=== PATIENT | male | born 1990 | race Caucasian/White ===

== ENCOUNTER 2020-07-21 07:34 | Emergency (ER) | payer OTHER, SELFPAY ==
[2020-07-21 07:42] VITALS: BP 132/96; PULSE 70; RESP 17; TEMP 36.1; O2SAT 95
--- NOTE | 2020-07-21 08:00 | PC.NURSE ---
PT DOES NOT HAVE A RIDE HOME, DOES NOT WANT TO TAKE THE FLEXERIL.
[2020-07-21] MEDS: IBUPROFEN 600 MG TABLET PO (08:01)
--- NOTE | 2020-07-21 08:02 | ED.BACK ---
HPI - Back Pain/Injury General Chief Complaint: Back Pain/Injury Stated Complaint: back pain Time Seen by Provider: 07/21/20 07:38 History of Present Illness HPI Narrative: Pain in the bilateral flanks for a 2 weeks. Worse with twisting and lifting things. He was concerned that it might be his kidneys so he tired drinking more water. No dysuria, hematuria, fever, trauma. Related Data Allergies Allergy/AdvReac Type Severity Reaction Status Date / Time No Known Allergies Allergy Verified 07/21/20 07:35 Review of Systems Review of Systems: All systems reviewed & are unremarkable except as noted in HPI and below Constitutional: Constitutional: Denies chills and Denies fever(s) Cardiovascular: Cardiovascular: Denies chest pain Respiratory: Respiratory: Denies cough and Denies dyspnea Gastrointestinal: Gastrointestinal: Denies abdominal pain, Denies nausea and Denies vomiting Genitourinary: Genitourinary: Denies hematuria, Denies dysuria and Reports urinary frequency Musculoskeletal: Musculoskeletal: Reports back pain Neurologic: Denies numbness and Denies weakness [facility] Past Medical History Medical History Healthy adult Social History Social History Smoking status: Never smoker Gender identity (if verbalized by the patient): Male Exam Const: General: healthy appearing, no acute distress and alert Orientation/consciousness: patient oriented x3 HENMT: Head: normal to inspection Resp: Effort & Inspection: normal respiratory effort Auscultation: clear to auscultation bilaterally, no rales, no rhonchi and no wheezes Cardio: Jugular venous distension: no JVD Rate: regular rate Rhythm: regular rhythm Heart sounds: no murmurs GI: Inspection: non-distended GI Palp: Yes Soft to palpation and No Tenderness to palpation present (GI) Back/Spine/Pelvis: Back: CVA tenderness Skin: General skin exam: normal color Neuro: General: patient oriented x3 and moves all extremities Speech: normal speech Extrem: General: no edema Psych: Appearance: well kempt Affect: normal affect Course Vital Signs Vital signs: Vital Signs Temperature 36.1 C L 07/21/20 07:42 Pulse Rate 70 07/21/20 07:42 Respiratory Rate 17 07/21/20 07:42 Blood Pressure 132/96 H 07/21/20 07:42 Pulse Oximetry 95 07/21/20 07:42 Temperature 36.1 C L 07/21/20 07:42 Pulse Rate 78 07/21/20 08:40 Respiratory Rate 16 07/21/20 08:40 Blood Pressure 117/78 07/21/20 08:40 Pulse Oximetry 100 07/21/20 08:40 MDM - Back Pain/Injury MDM Narrative Medical decision making narrative: History and exam most consistent with musculoskeletal pain. UA unremarkalbe. Lab Data Attestation: I reviewed the patient's lab results. Labs: Lab Results 07/21/20 Range/Units 07:56 Urine Color Yellow (Yellow) Urine Appearance Clear (Clear) Urine pH 6.0 (5.0-9.0) Ur Specific [place] 1.020 (1.001-1.035) Urine Protein 1+ H (Negative) mg/dL Urine Glucose (UA) Negative (Negative) mg/dL Urine Ketones Negative (Negative) mg/dL Ur Blood (Man) Negative (Negative) Urine Nitrate Negative (Negative) Urine Bilirubin Negative (Negative) Urine Urobilinogen Negative (<2.0) mg/dL Leukocyte Esterase Rfl Negative (Negative) MARICARMEN/UL Urine RBC 0-2 (0-2) /hpf Urine WBC 0-3 /hpf Urine Bacteria Trace /hpf Urine Mucus Rare /lpf Discharge Plan Discharge Clinical Impression: Back pain, thoracic Patient Disposition: Home, Self-Care Condition: Stable Instructions: Thoracic Back Strain (ED) Prescriptions: New cyclobenzaprine 10 mg tablet 10 mg PO TID PRN (Reason: muscle spasm) Qty: 20 RF: 0 ibuprofen 600 mg tablet 600 mg PO QID PRN (Reason: pain) Qty: 20 RF: 0 Follow-up/Referrals: PHYSICIAN,CYLINDER PRESS OPERATOR APPRENTICE [Primary Care Provider] -
[2020-07-21 08:06] LABS: Add Urine Microscopic? YES; Appearance Urine Clear (Clear); Bacteria Urine Trace /hpf; Bilirubin Urine Negative (Negative); Blood Urine Negative (Negative); Color Urine Yellow (Yellow); Glucose Urine UA Negative (Negative); Ketones Urine Negative (Negative); Leukocyte Esterase Ur Negative LEU/UL (Negative); Mucus Urine Rare /lpf; Nitrate Urine Negative (Negative); Protein Urine 1+ mg/dL (Negative); RBC Urine 0-2 /hpf (0-2); Urobilinogen Urine Negative mg/dL (<2.0); WBC Urine 0-3 /hpf
[2020-07-21 08:40] VITALS: BP 117/78; PULSE 78; RESP 16; O2SAT 100
== END 2020-07-21 08:41 | disposition home or self-care (01) ==
PROVIDERS: Emergency Provider Emergency Medicine
DX: M54.6 Pain in thoracic spine (principal)
CPT/HCPCS: 81001; 99283; A9270

== ENCOUNTER 2020-08-06 15:21 | Emergency (ER) | payer OTHER, SELFPAY ==
[2020-08-06 15:25] VITALS: BP 142/95; PULSE 93; RESP 16; TEMP 36.7; O2SAT 100
--- NOTE | 2020-08-06 16:44 | ED.GENADULT ---
HPI - General Adult General Chief complaint: Unspecified Stated complaint: Covid exposure Time Seen by Provider: 08/06/20 15:40 Source: patient Mode of arrival: ambulatory Limitations: no limitations History of Present Illness HPI narrative: Patient presents to the emergency department with chief concern of Covid exposure 08-03-20. Patient states that he was around his aunt at her home and was told that her and another family member tested positive for Covid. He states that he has not had symptoms but after he was told he began to panic and felt nauseous. At this time the patient does not have any symptoms or concerns or wants to be tested for Covid. Patient denies any chronic medical diseases or conditions. Related Data Allergies Allergy/AdvReac Type Severity Reaction Status Date / Time No Known Allergies Allergy Verified 07/21/20 07:35 Review of Systems Review of Systems: Narrative: CONSTITUTIONAL: Denies fever, chills, or sweats. EYES: Denies visual changes, redness, or discharge. ENT: Denies rhinorrhea, congestion, sore throat, or otalgia. CARDIOVASCULAR: Denies chest pain, palpitations, or edema. RESPIRATORY: Denies cough or dyspnea. GASTROINTESTINAL: Denies abdominal pain, nausea, vomiting, or diarrhea. GENITOURINARY: Denies dysuria or hematuria. SKIN: Denies rash or itching. MUSCULOSKELETAL: Denies back pain, joint pain, or myalgia. NEUROLOGIC: Denies headache, numbness, dizziness, or weakness. PSYCHIATRIC: Denies anxiety or depression. PMFSH Past Medical History Medical History Healthy adult Social History Social History Smoking status: Never smoker Gender identity (if verbalized by the patient): Male Exam Narrative: Exam Narrative: GENERAL: Well-appearing, well-nourished, and in no acute distress. HEAD: Normocephalic, atraumatic. EYES: PERRLA and EOMI. NECK: Supple. No adenopathy or masses. CHEST: Clear to auscultation. No respiratory distress. No wheezes rales or rhonchi HEART: Regular rate and rhythm. EXTREMITIES: Normal range of motion. No edema. SKIN: Warm, dry, no rash. NEURO: No focal deficits. Alert and oriented x3. PSYCH: Normal mood and affect. Course Vital Signs Vital signs: Vital Signs Temperature 98.1 F 08/06/20 15:25 Pulse Rate 93 08/06/20 15:25 Respiratory Rate 16 08/06/20 15:25 Blood Pressure 142/95 H 08/06/20 15:25 Pulse Oximetry 100 08/06/20 15:25 Temperature 98.1 F 08/06/20 15:25 Pulse Rate 93 08/06/20 15:25 Respiratory Rate 16 08/06/20 15:25 Blood Pressure 142/95 H 08/06/20 15:25 Pulse Oximetry 100 08/06/20 15:25 Medical Decision Making MDM Narrative Medical decision making narrative: Inform patient of the need to quarantine himself and that he can develop Covid anytime within 14 days. Even if this test is negative. Patient instructed to contact the health department and follow their instructions regarding quarantine. Patient verbalized understand agreement plan denies any other questions or concerns. Patient not have any cough, fever or shortness of breath so imaging and additional testing is forego. Vital Signs Vital Signs: Vital Signs Temperature 98.1 F 08/06/20 15:25 Pulse Rate 93 08/06/20 15:25 Respiratory Rate 16 08/06/20 15:25 Blood Pressure 142/95 H 08/06/20 15:25 Pulse Oximetry 100 08/06/20 15:25 Temperature 98.1 F 08/06/20 15:25 Pulse Rate 93 08/06/20 15:25 Respiratory Rate 16 08/06/20 15:25 Blood Pressure 142/95 H 08/06/20 15:25 Pulse Oximetry 100 08/06/20 15:25 Lab Data Labs: Lab Results 08/06/20 Range/Units 16:26 SARS-CoV-2 RNA (RT-PCR) Pending Discharge Plan Discharge Clinical Impression: Exposure to COVID-19 virus Patient Disposition: Home, Self-Care Condition: Stable Instructions: Antibiotic Form, COVID-19: Slow the Coronavirus Spre
[2020-08-07 17:19] LABS: SARS-CoV-2 RNA PCR Negative
== END 2020-08-06 16:34 | disposition home or self-care (01) ==
PROVIDERS: Physician Assistant; Emergency Provider Emergency Medicine; PCP Internal Medicine
DX: Z20.828 Contact with and (suspected) exposure to other viral communicable diseases (principal)
CPT/HCPCS: 87635; 99283; C9803; U0003

== ENCOUNTER 2020-08-07 11:01 | Outpatient (CLI) | payer OTHER, SELFPAY ==
--- NOTE | ~2020-08-07 | CT_ITS ---
EXAMINATION: CT abdomen pelvis w con DATE: 08/07/2020 11:28 INDICATION: Abdominal pain TECHNIQUE: Computed tomography (CT) of the abdomen and pelvis was performed with 100 cc Omnipaque 350 intravenous contrast. The dose-length product was 516.66 mGy-cm. Automated exposure control and iter ative reconstruction technique were employed. COMPARISON: None. FINDINGS: Lung bases are unremarkable. Heart size normal. No significant pleural or pericardial effus ion. Diffuse fatty infiltration of the liver. The spleen, pancreas, adrenal glands and kidneys are unremar kable. Nonobstructive bowel gas pattern. Gallbladder is present. No significant vascular abnormality. No lymphadenopathy. No abnormal pelvic masses or fluid collections. No acute osseous abnormality. IMPRESSION: 1. No acute abdominal abnormality. 2: Fatty infiltration of the liver. Reviewed, dictated and finalized at location A. [facility]
[2020-08-07 12:21] LABS: Add Urine Microscopic? NO; Appearance Urine Clear (Clear); Bilirubin Urine Negative (Negative); Blood Urine Negative (Negative); Color Urine Straw (Yellow); Glucose Urine UA Negative (Negative); Ketones Urine Negative (Negative); Leukocyte Esterase Ur Negative LEU/UL (NEGATIVE); Nitrate Urine Negative (Negative); Protein Urine Negative (Negative); Urobilinogen Urine Negative mg/dL (<2.0)
[2020-08-07 12:24] LABS: Hematocrit 45.8 % (42.0-52.0); Hemoglobin 15.6 g/dL (14.0-18.0); Mean Corpuscular HGB Conc 34.1 g/dl (32-36); Mean Corpuscular Volume 88.1 fl (80-100); Mean Platelet Volume 9.3 fl (7.4-10.4); Platelet Count Result 332 k/mm3 (150-375); Red Cell Distribution Width 11.9 % (11.5-14.5); White Blood Count 9.1 K/mm3 (4.5-10.0)
[2020-08-07 12:28] LABS: Specific Grav Ur > 1.060 (1.001-1.035)
[2020-08-07 12:47] LABS: Alanine Aminotransferase 58 U/L (4-50); Albumin Level 4.2 g/dL (3.5-5.1); Alkaline Phosphatase 81 U/L (38-126); Anion Gap 6 mmol/L (8-16); Aspartate Amino Transferase 39 U/L (17-59); Bilirubin,Total 0.8 mg/dL (0.2-1.3); Blood Urea Nitrogen 16 mg/dL (9-20); Calcium 9.7 mg/dL (8.4-10.2); Carbon Dioxide 34 mmol/L (22-30); Chloride 97 mmol/L (98-107); Estimated Glomerular Filt Rate > 60; Glucose 96 mg/dL (75-110); Potassium 4.6 mmol/L (3.4-5.0); Sodium 137 mmol/L (137-145)
== END 2020-08-07 11:02 | disposition home or self-care (01) ==
PROVIDERS: PCP Internal Medicine; Visit Provider Internal Medicine
DX: R10.9 Unspecified abdominal pain (principal); K76.0 Fatty (change of) liver, not elsewhere classified
CPT/HCPCS: 36415; 74177; 80053; 81003; 85027; Q9967

== ENCOUNTER 2020-10-11 09:39 | Outpatient (CLI) | payer OTHER, SELFPAY ==
[2020-10-11 10:35] LABS: Bilirubin,Total 0.7 mg/dL (0.2-1.3); Cholesterol 278 mg/dL (0-200); HDL Direct 53 mg/dL; INR 0.9; Prothrombin Time 12.8 Seconds (11.1-14.7); Triglycerides 130 mg/dL (<150)
[2020-10-11 10:45] LABS: LDL Cholesterol Direct 190 mg/dL
[2020-10-11 10:54] LABS: Iron 132 ug/dL (49-181)
[2020-10-13 20:35] LABS: Ceruloplasmin 29 mg/dL (18-36)
[2020-10-14 21:30] LABS: GGT 44 U/L (3-70)
== END 2020-10-11 09:40 | disposition home or self-care (01) ==
DX: R74.8 Abnormal levels of other serum enzymes (principal); K76.0 Fatty (change of) liver, not elsewhere classified; E78.00 Pure hypercholesterolemia, unspecified
CPT/HCPCS: 36415; 80061; 82247; 82390; 82728; 82977; 83540; 85610

== ENCOUNTER 2021-11-05 10:47 | Emergency (ER) | payer BC, SELFPAY ==
--- NOTE | ~2021-11-05 | XR_ITS ---
EXAMINATION: XR chest 1V portable 11/05/2021 11:37 INDICATION: Productive cough PROCEDURE: AP portable chest COMPARISON: 10/28/2018 FINDINGS: The lungs are clear. The cardiomediastinal silhouette is within normal limits. There are no pleural effusions. There is no pneumothorax suspected. IMPRESSION: 1: NO ACUTE CARDIOPULMONARY DISEASE. Reviewed, dictated and finalized at location B.
[2021-11-05 10:53] VITALS: BP 161/99; PULSE 82; RESP 18; TEMP 37.1; O2SAT 99
--- NOTE | 2021-11-05 11:08 | PC.NURSE ---
Care assumed of pt at this time. Pt laying on stretcher, no distress noted.
--- NOTE | 2021-11-05 11:11 | PC.NURSE ---
Patient report to BERTO Barker. All questions answered and care of patient transferred.
--- NOTE | 2021-11-05 12:02 | ED.URI ---
HPI - URI/Sore Throat General Chief Complaint: Upper Respiratory Infection Stated Complaint: upper respiratory infection Time Seen by Provider: 11/05/21 11:00 Source: patient Mode of arrival: ambulatory Limitations: no limitations History of Present Illness HPI Narrative: This is a 30-year-old male that presents to the emergency department for cold symptoms present over the last week. Reports he started to have some sinus congestion a week ago. Now he feels the congestion in his chest. He has had a productive cough. He has pain in his chest and back when he coughs. Denies fever, shortness of breath, or lower extremity edema. Related Data Allergies Allergy/AdvReac Type Severity Reaction Status Date / Time No Known Allergies Allergy Verified 07/21/20 07:35 Review of Systems Review of Systems: CONSTITUTIONAL: Denies fever ENT: Reports congestion CARDIOVASCULAR: Reports chest pain. Denies edema. RESPIRATORY: Reports cough. Denies dyspnea. All systems reviewed & are unremarkable except as noted in HPI and below PMFSH Past Medical History Medical History Healthy adult Social History Social History Smoking status: Never smoker Gender identity (if verbalized by the patient): Male Exam Narrative: GENERAL: Well-appearing, well-nourished, and in no acute distress. HEAD: Normocephalic, atraumatic. EYES: EOMI. ENT: Nares clear, no rhinorrhea or epistaxis. Mucous membranes moist. Oropharynx without tonsillar hypertrophy exudate or other lesions. Bilateral TMs pearly ruggiero non-bulging NECK: Supple. No adenopathy or masses. CHEST: Clear to auscultation. No respiratory distress. No wheezes rales or rhonchi HEART: Regular rate and rhythm. No murmur heard. Normal peripheral pulses. EXTREMITIES: Normal range of motion. No edema. SKIN: Warm, dry, no rash. NEURO: No focal deficits. Alert and oriented x3. PSYCH: Normal mood and affect Course Vital Signs Vital signs: Vital Signs Temperature 98.7 F 11/05/21 10:53 Pulse Rate 82 11/05/21 10:53 Respiratory Rate 18 11/05/21 10:53 Blood Pressure 161/99 H 11/05/21 10:53 Pulse Oximetry 99 11/05/21 10:53 Temperature 98.7 F 11/05/21 10:53 Pulse Rate 82 11/05/21 10:53 Respiratory Rate 18 11/05/21 10:53 Blood Pressure 161/99 H 11/05/21 10:53 Pulse Oximetry 99 11/05/21 10:53 MDM - URI/Sore Throat MDM Narrative Medical decision making narrative: Patient presents to the emergency department for cold symptoms present over the last week. He is afebrile and nontoxic-appearing. Oxygen saturation has remained normal on room air. Chest x-ray is without acute cardiopulmonary abnormality. Influenza and COVID screens are negative. Patient was updated on case findings. He was instructed on continued care of viral infection. He is to follow-up with primary care doctor. He was given warnings to return to the ER Blood pressure incidentally noted to be elevated in the ED. Patient instructed to continue to monitor this and follow-up with primary for this as well Lab Data Attestation: I reviewed the patient's lab results. Labs: Lab Results 11/05/21 Range/Units 11:29 SARS-CoV-2 RNA (RT-PCR) Negative Influenza A Screen Negative Reference Range: Negative Influenza B Screen Negative Reference Range: Negative Imaging Data Radiologist's impression: ITS Impressions Chest X-Ray 11/05/21 11:39 IMPRESSION: 1: NO ACUTE CARDIOPULMONARY DISEASE. Critical Care Time Critical Care Time Critical Care Time: No Discharge Plan Discharge Clinical Impression: Upper respiratory infection Qualifiers: URI type: unspecified viral URI Qualified Code(s): J06.9 - Acute upper respiratory infection, uns
[2021-11-05 12:13] LABS: SARS-CoV-2 RNA PCR Negative
[2021-11-05 12:54] VITALS: BP 145/104; PULSE 88; RESP 18; O2SAT 99
== END 2021-11-05 12:55 | disposition home or self-care (01) ==
PROVIDERS: Physician Assistant; Emergency Provider Emergency Medicine
DX: J06.9 Acute upper respiratory infection, unspecified (principal); Z20.822 Contact with and (suspected) exposure to COVID-19
CPT/HCPCS: 71045; 87804; 99283; C9803; U0003; U0005

== ENCOUNTER 2022-04-15 16:03 | Emergency (ER) | payer BC, SELFPAY ==
--- NOTE | ~2022-04-15 | XR_ITS ---
EXAMINATION: XR ankle RT min 3V DATE: 04/15/2022 16:38 INDICATION: Right ankle hit with a ball TECHNIQUE: Anteroposterior, oblique, mortise, and lateral views of the right ankle were obtained. COMPARISON: None. FINDINGS: Bone alignment is normal. No fracture. Joint spaces are normal. Small Achilles calcaneal spur. Soft t issues are unremarkable with no ankle joint effusion. IMPRESSION: 1. No acute osseous abnormality. Reviewed, dictated and finalized at location A.
[2022-04-15 16:20] VITALS: BP 140/94; PULSE 93; RESP 16; TEMP 36.1; O2SAT 100
--- NOTE | 2022-04-15 16:39 | ED.LOWEXIN ---
HPI - Extremity Injury (Lower) General Chief Complaint: Extremity Injury, Lower Stated Complaint: Right ankle injury Time Seen by Provider: 04/15/22 16:25 Source: patient Mode of arrival: ambulatory Limitations: no limitations History of Present Illness HPI Narrative: Mr. Munson is a 31-year-old male patient presenting to the clinic today with complaints of right-sided ankle pain. He reports that a few days ago he was hit with a softball. Has some bruising and pain to this area. He reports that he had to call off work because his muscle got tight and he is needing a work note to return. Related Data Home Medications Medication Instructions Recorded Confirmed No Home Medications 04/15/22 04/15/22 Allergies Allergy/AdvReac Type Severity Reaction Status Date / Time No Known Allergies Allergy Verified 04/15/22 16:47 Review of Systems Review of Systems: Pertinent positives per HPI. Patient denies any fever, chills, rash, headache, visual changes, dizziness, cough, runny nose, sore throat, shortness of breath, chest pain, palpitations, nausea, vomiting, diarrhea, constipation, abdominal pain, or any urinary issues. [facility] Past Medical History Medical History Healthy adult Social History Social History Smoking status: Never smoker Gender identity (if verbalized by the patient): Male Comments At the time of my signature, I reviewed and agree with the nursing past medical, surgical, social, and family history. There is no relevant family history pertinent to the patient complaint. Exam Narrative: General: Well-developed, well nourished, in no apparent distress Head: Normocephalic, atraumatic. Cardio: Regular rate and rhythm, s1 and s2 normal, no murmur appreciated. Resp: Clear to auscultation bilaterally, no rhonchi, rales, wheezing or rubs. Musculoskeletal: No deformity, mild tender to palpation over the proximal medial right ankle, grossly normal range of motion, muscle strength strong and equal, peripheral pulse strong, no edema, no cyanosis, normal gait and station Course Course Emergency Course: Portions of this record may have been created with voice recognition software. Level of Care: Express Care Visit Vital Signs Vital signs: Vital Signs Temperature 36.1 C L 04/15/22 16:20 Pulse Rate 93 04/15/22 16:20 Respiratory Rate 16 04/15/22 16:20 Blood Pressure 140/94 H 04/15/22 16:20 Pulse Oximetry 100 04/15/22 16:20 Oxygen Delivery Room Air 04/15/22 16:20 Temperature 36.1 C L 04/15/22 16:20 Pulse Rate 93 04/15/22 16:20 Respiratory Rate 16 04/15/22 16:20 Blood Pressure 140/94 H 04/15/22 16:20 Pulse Oximetry 100 04/15/22 16:20 Oxygen Delivery Room Air 04/15/22 16:20 Vital signs reviewed MDM - Extremity Injury (Lower) MDM Narrative Medical decision making narrative: At the time of visit patient is resting comfortably on the exam table. X-ray was negative for any fracture. I suspect the patient has a ankle contusion. Supportive measures were discussed with patient and work note was given for him to return. He voiced understanding of discharge instructions and agrees to treatment plan. Differential Diagnosis Differential diagnosis: Likely ankle sprain and strain and other (Ankle fracture, ankle contusion) Imaging Data Radiologist's impression: Close Ankle X-Ray (Signed) James Villanueva - 04/15/[address] [place] [address] XRay Report Signed Patient: Jm Munson : 1990 MR#: [id number] Age/Sex: 31 / M Acct:[id number] Loc: [facility]? ? ADM Date: 04/15/22Attending Dr: Ordering Physician: Mayo Perry APRN Date of Service: 04/15/22 Procedure(s): XR ankle RT min 3V Accession Number(s): [id number]
== END 2022-04-15 17:05 | disposition home or self-care (01) ==
PROVIDERS: Emergency Provider Nurse Practitioner Family
DX: S90.01XA Contusion of right ankle, initial encounter (principal); W21.07XA Struck by softball, initial encounter
CPT/HCPCS: 73610; 99213; G0463